=== PATIENT | female | born 1985 | race Caucasian/White ===

== ENCOUNTER 2016-06-03 12:35 | Emergency (ER) | payer SELFPAY ==
[~2016-06-03] VITALS: Ht 170.2 cm; Wt 70.0 kg
[~2016-06-03 12:35] MED LIST: FLEXERIL PO; MOTRIN800 MG PO; PERCOCET 5/325M1 TAB PO
[2016-06-03 13:10] LABS: HEMATOCRIT 35.3 % (37.0-47.0); HEMOGLOBIN 11.8 g/dl (12.0-16.0); IMMATURE GRANULOCYTES 1.5 % (0.0-1.0); MEAN CELL VOLUME 84.4 fL CALC (80.0-100.0); MEAN CORPUSCULAR HGB 28.2 pG CALC (26.0-32.0); MEAN CORPUSCULAR HGB CONC 33.4 g/L CALC (32.0-36.0); NEUT# 5.33 thou/uL (2.00-7.15); RED BLOOD COUNT 4.18 mill/uL (4.20-5.60); RED CELL DISTRI WIDTH 15.4 % (11.5-15.5)
[2016-06-03] MEDS ORDERED: AMBIEN10 MG PO (13:12)
[2016-06-03 13:20] VITALS: BP 142/77
[2016-06-03 13:31] LABS: ALBUMIN 4.6 g/dL (3.2-5.0); ALKALINE PHOSPHATASE 52 u/l (38-126); AMYLASE 55 u/l (30-110); ANION GAP 17 (6-22 (CALC)); BILIRUBIN, TOTAL 0.8 mg/dL (0.0-1.4); BUN 8 mg/dL (7-17); BUN/CREATININE RATIO 10 (12-20 (CALC)); CALCIUM 9.4 mg/dL (8.4-10.2); CARBON DIOXIDE 22 mmol/l (22-30); CHLORIDE 105 mmol/l (95-108); CREATININE 0.8 mg/dL (0.5-1.0); GFR > 60 ML/MIN (>=60 (CALC)); GFR FOR AFR.AMER. > 60 ML/MIN (>=60 (CALC)); GLUCOSE 96 mg/dL (65-105); LIPASE 129 u/l (23-300); POTASSIUM 3.9 mmol/l (3.5-5.1); SGOT/AST 30 u/l (14-36); SGPT/ALT 25 u/l (9-52); SODIUM 140 mmol/l (137-146); TOTAL PROTEIN 7.7 g/dL (6.3-8.2)
[2016-06-03 13:43] LABS: MYOGLOBIN 28 ng/mL (0 - 62)
== END 2016-06-03 13:29 | disposition home or self-care (01) | DRG 882 ==
LOC: ED 12:35
PROVIDERS: Emergency Medicine
DX: F43.22 Adjustment disorder with anxiety (principal); F17.210 Nicotine dependence, cigarettes, uncomplicated

== ENCOUNTER 2016-06-21 11:34 | Emergency (ER) | payer SELFPAY ==
[~2016-06-21] VITALS: Ht 170.2 cm; Wt 68.0 kg
[~2016-06-21 11:34] MED LIST changes: +AMBIEN10 MG PO
[2016-06-21 12:30] LABS: URINE BILIRUBIN - DIPSTICK NEGATIVE (NEGATIVE); URINE BLOOD DIPSTICK LARGE (NEGATIVE); URINE COLOR YELLOW; URINE GLUCOSE - DIPSTICK NEGATIVE (NEGATIVE); URINE KETONE TRACE mg/dL (NEGATIVE); URINE LEUK ESTERASE NEGATIVE (NEGATIVE); URINE NITRITE - DIPSTICK NEGATIVE (Negative); URINE PROTEIN - DIPSTICK 30 mg/dL (NEG-TRACE); URINE SPECIFIC GRAVITY >=1.030; URINE UROBILINOGEN - DIPSTICK 0.2 E.U./dL (0.2)
[2016-06-21 12:33] LABS: URINE CLARITY SLIGHT CLOUDY
[2016-06-21 12:34] LABS: URINE EPITHELIAL CELLS FEW EPI/hpf (0-FEW); URINE RBC 25-50 RBC/hpf (0-5)
[2016-06-21] MEDS ORDERED: MOTRIN800 MG PO (12:51)
[2016-06-21] MEDS ORDERED: BACTRIM DS1 TAB PO (12:51)
[2016-06-21] MEDS ORDERED: PYRIDIUM200 MG PO (12:51)
[2016-06-21 13:21] VITALS: BP 118/84
== END 2016-06-21 13:26 | disposition home or self-care (01) | DRG 696 ==
LOC: ED 11:34
PROVIDERS: Emergency Medicine
DX: R30.0 Dysuria (principal)

== ENCOUNTER 2016-10-21 13:14 | Emergency (ER) | payer SELFPAY ==
[~2016-10-21] VITALS: Ht 170.2 cm; Wt 76.6 kg
[~2016-10-21 13:14] MED LIST changes: +BACTRIM DS1 TAB PO; +PYRIDIUM200 MG PO
[2016-10-21 14:16] LABS: HEMATOCRIT 40.6 % (37.0-47.0); HEMOGLOBIN 13.1 g/dl (12.0-16.0); IMMATURE GRANULOCYTES 0.5 % (0.0-1.0); MEAN CELL VOLUME 88.6 fL CALC (80.0-100.0); MEAN CORPUSCULAR HGB 28.6 pG CALC (26.0-32.0); MEAN CORPUSCULAR HGB CONC 32.3 g/L CALC (32.0-36.0); NEUT# 5.35 thou/uL (2.00-7.15); RED BLOOD COUNT 4.58 mill/uL (4.20-5.60); RED CELL DISTRI WIDTH 15.4 % (11.5-15.5)
[2016-10-21 14:18] LABS: URINE BILIRUBIN - DIPSTICK NEGATIVE (NEGATIVE); URINE BLOOD DIPSTICK NEGATIVE (NEGATIVE); URINE CLARITY CLEAR; URINE COLOR YELLOW; URINE GLUCOSE - DIPSTICK NEGATIVE (NEGATIVE); URINE KETONE NEGATIVE (NEGATIVE); URINE LEUK ESTERASE NEGATIVE (NEGATIVE); URINE NITRITE - DIPSTICK NEGATIVE (Negative); URINE PH 6.5 (4.5-8.0); URINE PROTEIN - DIPSTICK NEGATIVE (NEG-TRACE); URINE SPECIFIC GRAVITY 1.015; URINE UROBILINOGEN - DIPSTICK 0.2 E.U./dL (0.2)
[2016-10-21 14:27] LABS: ALBUMIN 4.8 g/dL (3.2-5.0); ALKALINE PHOSPHATASE 44 u/l (38-126); AMYLASE 67 u/l (30-110); ANION GAP 16 (6-22 (CALC)); BILIRUBIN, TOTAL 0.6 mg/dL (0.0-1.4); BUN 11 mg/dL (7-17); BUN/CREATININE RATIO 12 (12-20 (CALC)); CARBON DIOXIDE 26 mmol/l (22-30); CHLORIDE 103 mmol/l (95-108); CREATININE 0.9 mg/dL (0.5-1.0); GFR > 60 ML/MIN (>=60 (CALC)); GFR FOR AFR.AMER. > 60 ML/MIN (>=60 (CALC)); GLUCOSE 88 mg/dL (65-105); LIPASE 324 u/l (23-300); SGOT/AST 20 u/l (14-36); SGPT/ALT 31 u/l (9-52); SODIUM 141 mmol/l (137-146); TOTAL PROTEIN 7.7 g/dL (6.3-8.2)
[2016-10-21] MEDS ORDERED: ZOFRAN ODT4 MG PO (17:04)
[2016-10-21] MEDS ORDERED: COLACE100 MG PO (17:04)
[2016-10-21] MEDS ORDERED: MOTRIN800 MG PO (17:04)
[2016-10-21] MEDS ORDERED: PERCOCET 5/325M1 TAB PO (17:04)
[2016-10-21 17:25] VITALS: BP 125/66
== END 2016-10-21 17:40 | disposition home or self-care (01) | DRG 392 ==
LOC: ED 13:14
PROVIDERS: Emergency Medicine
DX: R10.31 Right lower quadrant pain (principal); F41.9 Anxiety disorder, unspecified; M54.30 Sciatica, unspecified side; F17.210 Nicotine dependence, cigarettes, uncomplicated
CPT/HCPCS: Q9967